=== PATIENT | male | born 2000 | race Caucasian/White ===

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

== ENCOUNTER → 2022-01-16 | Outpatient (CLI) | payer MEDICAID | END | disposition home or self-care (01) | LOC: CT 10:55 | PROVIDERS: ATTEND Urology | DX: N20.0 Calculus of kidney (principal) ==

== ENCOUNTER → 2022-02-11 | Outpatient (CLI) | payer MEDICAID ==
[2022-02-11 13:33] LABS: BASO % 0.5 % (0.0-1.0); BILIRUBIN Negative (Negative); BLOOD Negative (Negative); CLARITY Turbid (Clear); COLOR Yellow (Yellow); EOS # 0.1 10*3/uL (0.0-0.4); EOS % 1.4 % (1.0-4.0); GLUCOSE Negative (Negative); HEMATOCRIT 41.3 % (42.0-52.0); KETONE Negative (Negative); LEUKO ESTERASE Negative (Negative); LYMPH # 2.7 10*3/uL (1.3-4.4); LYMPH % 37.3 % (27.0-41.0); MEAN CELL VOLUME 89.2 fl (80.0-94.0); MEAN CORPUSCULAR HGB 30.5 pg (27.0-31.0); MEAN CORPUSCULAR HGB CONC 34.1 g/dl (33.0-37.0); MEAN PLATELET VOLUME 8.4 fl (9.6-12.3); MONO # 0.5 10*3/uL (0.1-1.0); MONO % 6.3 % (3.0-9.0); NEUT % 54.4 % (47.0-73.0); NITRITE Negative (Negative); PLATELET COUNT AUTOMATED 343 10*3/uL (130-400); RED BLOOD COUNT 4.63 10*6/uL (4.50-5.90); RED CELL DISTRI WIDTH 12.3 % (0-14.5); SPECIFIC GRAVITY 1.015 (1.001-1.030); UROBILINOGEN 0.2 E.U./dl (0.0-1.0); WHITE BLOOD COUNT 7.3 10*3/uL (4.8-10.8)
[2022-02-11 13:45] LABS: MUCOUS 2+; RBC 0-2 rbc/hpf (0-2)
[2022-02-11 13:54] LABS: ALKALINE PHOSPHATASE 65 U/L (45-117); BUN 11 mg/dl (7-24); CHLORIDE 106 mmol/L (98-107); CREATININE 0.82 mg/dL (0.70-1.30); POTASSIUM 3.7 mmol/L (3.5-5.1); SGOT/AST 10 IU/L (3-35); SGPT/ALT 17 U/L (12-78); SODIUM 139 mmol/L (136-145); T3 UPTAKE 35 % (31-39); THYROXINE (T4) TOTAL 9.2 ug/dl (4.5-12.1)
[2022-02-22 23:06] LABS: BUSHITE 9.97 ratio (0.00-3.00); CALCIUM OXALATE 10.18 ratio (0.00-6.00); CALCIUM, URINE 21.3 mg/dL (Not Estab.); CALCIUM, URINE 223.7 mg/24 hr (0.0-320.0); CITRIC ACID (CITRATE) 127 mg/24 hr (320-1240); CREATININE, URINE 119.9 mg/dL (Not Estab.); MAGNESIUM, URINE 9.9 mg/dL (Not Estab.); MONOSODIUM URATE 7.35 ratio (0.00-4.00); OSMOLALITY, URINE 560 (300-900); SODIUM, URINE 157 mmol/L (Not Estab.); SODIUM, URINE 165 (58-337); URIC ACID 0.24 ratio (0.00-1.20); pH 24 HR URINE 6.9 (4.5-8.0)
== END | disposition home or self-care (01) ==
LOC: LAB 13:15
PROVIDERS: ATTEND Urology
DX: N20.0 Calculus of kidney (principal); R31.9 Hematuria, unspecified

== ENCOUNTER 2022-03-11 15:13 | Emergency (ER) | payer MEDICAID ==
[~2022-03-11] VITALS: Wt 72.6 kg
[2022-03-11 15:37] VITALS: BP 143/72
[2022-03-11 16:01] LABS: BILIRUBIN Negative (Negative); BLOOD 3+ (Negative); CLARITY Clear (Clear); COLOR Red (Yellow); GLUCOSE Negative (Negative); KETONE Negative (Negative); LEUKO ESTERASE 1+ (Negative); NITRITE Negative (Negative); PH 7.5 (4.5-8.0); SPECIFIC GRAVITY <= 1.005 (1.001-1.030); UROBILINOGEN 0.2 E.U./dl (0.0-1.0)
[2022-03-11 16:08] LABS: RBC TNTC rbc/hpf (0-2)
[2022-03-11 16:09] LABS: BACTERIA 2+; EPITHELIAL CELLS 0-2
[2022-03-11 17:02] LABS: BASO % 0.4 % (0.0-1.0); EOS % 0.4 % (1.0-4.0); HEMATOCRIT 40.7 % (42.0-52.0); LYMPH # 1.8 10*3/uL (1.3-4.4); LYMPH % 22.3 % (27.0-41.0); MEAN CELL VOLUME 89.3 fl (80.0-94.0); MEAN CORPUSCULAR HGB CONC 33.7 g/dl (33.0-37.0); MEAN PLATELET VOLUME 8.3 fl (9.6-12.3); MONO # 0.6 10*3/uL (0.1-1.0); NEUT # 5.7 10*3/uL (2.3-7.9); NEUT % 69.7 % (47.0-73.0); PLATELET COUNT AUTOMATED 295 10*3/uL (130-400); RED BLOOD COUNT 4.56 10*6/uL (4.50-5.90); RED CELL DISTRI WIDTH 12.1 % (0-14.5); WHITE BLOOD COUNT 8.2 10*3/uL (4.8-10.8)
[2022-03-11 17:20] LABS: ALKALINE PHOSPHATASE 70 U/L (45-117); BUN 10 mg/dl (7-24); CHLORIDE 105 mmol/L (98-107); CREATININE 0.82 mg/dL (0.70-1.30); LIPASE 76 U/L (73-393); POTASSIUM 3.9 mmol/L (3.5-5.1); SGOT/AST 8 IU/L (3-35); SGPT/ALT 18 U/L (12-78); SODIUM 138 mmol/L (136-145); TOTAL PROTEIN 7.5 gm/dL (6.4-8.2)
[2022-03-11] MEDS ORDERED: CEPHALEXIN500 M1 PO (20:47)
== END 2022-03-11 21:19 | disposition home or self-care (01) ==
LOC: ED 15:13
PROVIDERS: Emergency Medicine
DX: N39.0 Urinary tract infection, site not specified (principal)

== ENCOUNTER → 2022-07-15 | Outpatient (CLI) | payer MEDICAID ==
[~2022-07-15] MED LIST changes: +CEPHALEXIN500 M1 PO
== END | disposition home or self-care (01) ==
LOC: RAD 15:35
PROVIDERS: ATTEND Internal Medicine
DX: M47.814 Spondylosis without myelopathy or radiculopathy, thoracic region (principal)

== ENCOUNTER 2024-02-17 19:06 | Emergency (ER) | payer MEDICAID ==
[~2024-02-17] VITALS: Ht 187.9 cm; Wt 71.7 kg
[2024-02-17 19:15] VITALS: BP 135/86
[2024-02-17] MEDS ORDERED: PENICILLIN VK500 MG PO (19:21)
[2024-02-17] MEDS ORDERED: Lidocaine Hydrochloride 15 ML UDC PO STA (19:22)
[2024-02-17] MEDS ORDERED: BENZOCAINE 20% 11.9 GM GEL T STA (19:22)
== END 2024-02-17 19:33 | disposition home or self-care (01) ==
LOC: ED 19:06
DX: K08.89 Other specified disorders of teeth and supporting structures (principal); Z87.442 Personal history of urinary calculi; Z98.890 Other specified postprocedural states

== ENCOUNTER → 2025-09-29 | Outpatient (CLI) | payer BC ==
[~2025-09-29] MED LIST changes: +PENICILLIN VK500 MG PO
== END | disposition home or self-care (01) ==
LOC: US 09:49
PROVIDERS: ATTEND Internal Medicine Nephrology
DX: N20.0 Calculus of kidney (principal); N32.89 Other specified disorders of bladder